=== PATIENT | male | born 2000 | race Caucasian/White ===

== ENCOUNTER 2019-05-31 21:42 | Emergency (ER) | payer OTHER ==
[2019-05-31 21:57] VITALS: BP 125/78
--- NOTE | 2019-05-31 22:23 | UC ---
Ear Complaint HPI - HPI Summary HPI Summary: Patient is a 18yo male presenting with cold symptoms x5 days and left ear pain x1 day. States ear pain worsened after going swimming earlier today. Notes nasal congestion, sinus pressure, PND, and mild cough. Notes right ear pressure , but no pain. Denies drainage from ears. Denies changes in hearing. Denies sore throat. Denies SOB and wheezing. Denies n/v/d. - History of Current Complaint Chief Complaint: UCEar Stated Complaint: LT EAR COMPLAINT Hx Obtained From: Patient Onset/Duration: Gradual Onset, Worse Since - swimming today Severity Currently: Severe Pain Intensity: 8 Pain Scale Used: 0-10 Numeric - Allergies/Home Medications Allergies/Adverse Reactions: Allergies Allergy/AdvReac Type Severity Reaction Status Date / Time No Known Allergies Allergy Verified 05/31/19 21:57 Home Medications: Home Medications NK [No Home Medications Reported] 05/31/19 [History Confirmed 05/31/19] PMH/Surg Hx/FS Hx/Imm Hx Previously Healthy: Yes - Surgical History Surgical History: Yes Surgery Procedure, Year, and Place: left knee - Family History Known Family History: Positive: Non-Contributory - Social History Alcohol Use: Occasionally Substance Use Type: None Smoking Status (MU): Never Smoked Tobacco Review of Systems All Other Systems Reviewed And Are Negative: Yes Constitutional: Positive: Negative Skin: Positive: Negative Eyes: Positive: Negative ENT: Positive: Ear Ache, Nasal Discharge - PND, Sinus Congestion. Negative: Sore Throat, Sinus Pain/Tenderness Respiratory: Positive: Cough. Negative: Shortness Of Breath Cardiovascular: Positive: Negative Gastrointestinal: Positive: Negative Musculoskeletal: Positive: Negative Neurological: Positive: Negative. Negative: Headache Physical Exam Triage Information Reviewed: Yes Appearance: Well-Appearing, No Pain Distress, Well-Nourished Vital Signs: Initial Vital Signs Temp 98.3 F 05/31/19 21:53 Pulse 84 05/31/19 21:53 Resp 15 05/31/19 21:53 BP 125/78 05/31/19 21:53 Pulse Ox 100 05/31/19 21:53 Vital Signs Reviewed: Yes Eyes: Positive: Conjunctiva Clear ENT: Positive: Hearing grossly normal, Pharynx normal, Nasal congestion, Nasal drainage - PND noted, TM red - mild erythema of left TM. TM intact. no bulging or fluid behind TM. no drainage. normal light reflex., Uvula midline. Negative : TM bulging, TM dull, Tonsillar swelling, Tonsillar exudate, Sinus tenderness Neck exam: Normal Neck: Positive: Supple, Nontender, No Lymphadenopathy Respiratory Exam: Normal Respiratory: Positive: Lungs clear, Normal breath sounds, No respiratory distress. Negative: Crackles, Rhonchi, Stridor, Wheezing Cardiovascular Exam: Normal Cardiovascular: Positive: RRR Neurological: Positive: Alert Psychological: Positive: Age Appropriate Behavior Ear Complaint Course/Dx - Course Course Of Treatment: Discussed with patient that there are no signs of infection or perforation of TM. Educated him on URI and ear pressure. Instructed him not to swim while pressure/pain in ears are present to avoid adding more pressure. Instructed him to take otc decongestants and to continue cold medications for symptomatic relief. Directed to return if pain or symptoms worsen. Patient voiced understanding and agreed to the treatment plan. - Differential Dx/Diagnosis Provider Diagnosis: Left ear pain, Upper respiratory infection Discharge ED - Sign-Out/Discharge Documenting (check all that apply): Patient Departure All imaging exams completed and their final reports reviewed: No Studies - Discharge Plan Condition: Stable Disposition: HOME Patient Education Materials: Upper Respiratory Infection (ED) Referrals: [facility] [Outside] [facility] [Outside] Additional Instructions: As discussed, you have no signs of an ear infection. Continue to take over the counter cough and cold medications. Take mucinex to help reduce mucus production. You may use nasal sprays for symptomatic relief. Do not go swimming while ear pain is still present. Follow up with Physician Referral or the [facility] if symptoms persist or worsen. - Billing Disposition and Condition Condition: STABLE Disposition: Home - Attestation Statements Provider Attestation: I was available for consult. This patient was seen by the [facility]. The patient was not presented to, seen by, or examined by me. -Benito
== END 2019-05-31 22:31 | disposition home or self-care (01) ==
LOC: UCCORT 21:42
DX: H92.02 Otalgia, left ear (principal); J06.9 Acute upper respiratory infection, unspecified; H73.892 Other specified disorders of tympanic membrane, left ear
CPT/HCPCS: 99201; G0463